=== PATIENT | male | born 1970 | race Caucasian/White ===

== ENCOUNTER 2018-08-12 05:53 | Emergency (ER) | payer BC ==
[~2018-08-12] VITALS: Ht 188 cm; Wt 87.1 kg
[2018-08-12 06:00] VITALS: Ht 188 cm; Wt 87.1 kg
[2018-08-12 08:05] VITALS: BP 189/141
== END 2018-08-12 08:05 | disposition left against medical advice (07) ==
LOC: ED 05:53
DX: H11.31 Conjunctival hemorrhage, right eye (principal); R31.0 Gross hematuria; I10 Essential (primary) hypertension; Z98.890 Other specified postprocedural states